=== PATIENT | male | born 1985 | race Caucasian/White ===

== ENCOUNTER 2018-03-25 13:22 | Observation (INO) ==
[2018-03-25] MEDS ORDERED: 0.9 % Sodium Chloride 1,000 ML IVC ONE (13:29)
[2018-03-25] MEDS ORDERED: Ondansetron 4 MG/2 ML VIAL IVP ONE (13:29)
[2018-03-25] MEDS ORDERED: *HR* FentaNYL (PF) 100 MCG/2 ML VIAL IVP ONE ×2 (13:49→20:50)
--- NOTE | 2018-03-25 13:52 | Emergency Department Note ---
Disposition Clinical Impression: Elevated bilirubin, Elevated transaminase level Hepatitis A Qualifiers: Hepatic coma status: without hepatic coma Qualified Code(s): B15.9 - Hepatitis A without hepatic coma Abdominal pain Qualifiers: Abdominal location: generalized Qualified Code(s): R10.84 - Generalized abdominal pain Nausea and vomiting Qualifiers: Vomiting type: unspecified Vomiting Intractability: non-intractable Qualified Code(s): R11.2 - Nausea with vomiting, unspecified Disposition: Admitted As Inpatient Condition: Undetermined Referrals: NONE,PCP [Primary Care Provider] - Forms: ED Satisfaction Letter, Work/School Release Time of Disposition: 15:48 Abdominal Pain HPI - General Chief Complaint: ED General Medical Stated Complaint: Flu like symptoms x 5 days Time Seen by Provider: 03/25/18 13:28 Source: patient Mode of arrival: ambulatory Limitations: no limitations Nursing Notes Reviewed: Yes Vital Signs Reviewed: Yes - History of Present Illness HPI Narrative: 32-year-old previously healthy male arrives to the emergency department with complaint of feeling ill over the past few days. Patient states he has become more weak with associated nausea and vomiting. Patient also states that his yellowing of the eyes as well as very dark colored urine. The patient states he has never had any episodes like this in the past. He denies any alcohol or recreational drug use including IVDU. The patient denies any fevers. He denies any chest pain, difficulty breathing. He appears uncomfortable in the room. He said he he is unable to keep any fluids down. The patient describes his abdominal pain is crampy and diffuse without any specific location. He denies any other complaints at this time. Pain Scale: 8 - Related Data Previous Rx's Medication Instructions Recorded Sulfamethoxazole/Trimeth DS 2 each PO BID #28 tablet 02/03/17 [Bactrim DS] Tramadol HCl [Ultram] 50 mg PO QID PRN #20 tab 02/03/17 Allergies Allergy/AdvReac Type Severity Reaction Status Date / Time No Known Allergies Allergy Verified 02/03/17 10:54 All systems ED: reviewed and negative except as stated. Constitutional: Reports: chills, weakness. Denies: fever ENT ED: Denies: congestion, dysphagia Cardiovascular: Denies: chest pain Respiratory: Denies: dyspnea Gastrointestinal: Reports: abdominal pain, nausea, vomiting. Denies: diarrhea, constipation, hematemesis, melena, hematochezia Genitourinary: Reports: dysuria. Denies: urgency, frequency, hematuria, discharge, testicular pain, testicular mass Musculoskeletal: Reports: back pain, myalgia. Denies: neck pain, arthralgia Integumentary: Denies: rash Neurological: Denies: headache, confusion Abdominal Pain PMH - Past Medical History Medical history: Reports: no medical history Male Surgical History: Reports: no surgical history - Social History Smoking status: Current every day smoker Alcohol use: Reports: rarely Drug use: Reports: none Physical Exam - General Limitations: no limitations General appearance: alert, in no apparent distress - Head Head exam: atraumatic, normocephalic, normal inspection - Eye Eye exam: Present: PERRL, EOMI, scleral icterus - ENT ENT exam: normal exam, normal oropharynx, mucous membranes moist - Neck Neck exam: Present: normal inspection, full ROM, trachea midline - Chest Chest inspection: Present: normal inspection, symmetric chest wall rise - Respiratory Respiratory exam: Present: normal lung sounds bilaterally - Cardiovascular Cardiovascular exam: Present: regular rate, normal rhythm, normal heart sounds - Abdominal Exam Abdominal exam: Present: soft, tenderness (Diffuse). Absent: distention, guarding, rebound, rigidity, Hendrickson's sign, Rovsing's sign, tenderness at McBurney's Point, pulsatile mass, hernia, scar - Extremities Exam Extremities exam: Present: normal inspection, full ROM. Absent: tenderness, pedal edema - Neurological Exam Neurological exam: Present: alert, oriented X3, CN II-XII intact, other (No asterixis) - Skin Skin exam: Present: warm, dry, intact, other (Jaundiced) Course - Reevaluation(s) Reevaluation #1: Patient noted to have a nitrite positive UTI. In addition, the patient was noted to have hepatitis A. Infectious control was notified. The patient was noted to have a bilirubin of 7.9, elevated transaminases. Time: 15:10 - Consultations Consultation #1: Spoke with Dr. Rocha in gastroenterology who recommended tylenol level and urine drug screen. Time: 15:45 Consultation #2: Spoke with Eloisa in infectious disease who stated they will see the patient in consultation. Time: 15:46 Consultation #3: We spoke with Dr. Owens in surgery who did not feel this was a surgical issue with the gallbladder wall thickening. She recommended speaking to GI which we did. No further recommendations at this time. Time: 15:58 Vital Signs Temperature 98.0 F 03/25/18 13:24 Pulse Rate 92 03/25/18 13:24 Respiratory Rate 16 03/25/18 13:24 Blood Pressure 131/92 03/25/18 13:24 O2 Sat by Pulse Oximetry 95 03/25/18 13:24 Temperature 98.0 F 03/25/18 13:53 Pulse Rate 69 03/25/18 15:33 Respiratory Rate 16 03/25/18 15:33 Blood Pressure 119/83 03/25/18 15:33 O2 Sat by Pulse Oximetry 97 03/25/18 15:33 Oxygen Delivery Oxygen Delivery Room Air Abdominal Pain - MDM Narrative Medical decision making narrative: Patient's workup in the emergency department demonstrates findings consistent with acute hepatitis A. Patient's acetaminophen level is within normal limits. The patient was also had a urinary tract infection. No biliary of structure was noted on ultrasound or CT scan. The patient does have elevated bilirubin at 7.9. Elevated transaminases are noted as well. The patient will be admitted to the hospital. He was given a gram or Rocephin and a liter of IV fluids here in the emergency department as well as 4 mg Zofran. Resting comfortably at this time. Ultrasound of the gallbladder did note some gallbladder wall thickening and surgery was consulted. The patient will be accepted to the hospitalist, Dr. Ellis. - Lab Data Lab results reviewed: Yes I reviewed the patient's lab results. Result diagrams: 03/25/18 13:39 03/25/18 13:39 Lab Results 03/25/18 03/25/18 03/25/18 Range/Units 13:39 13:39 13:39 WBC 4.3 (4.3-11.1) K/mcL RBC 5.50 (4.19-5.50) M/mcL Hgb 16.4 (12.9-16.9) g/dL Hct 45.1 (37.5-50.1) % MCV 82.0 L (83.0-100.0) fL MCH 29.8 (28.0-33.3) pg MCHC 36.4 H (31.6-35.5) g/dL RDW 12.8 (11.5-14.5) % Plt Count 161 (140-400) K/mcL MPV 9.4 (9.4-12.4) fL Seg Neutrophils % 46.0 % Band Neutrophils % 3.0 (0-4) % Lymphocytes % 38.0 % Monocytes % 10.0 % Eosinophils % 3.0 % Neutrophils # 2.1 (1.6-8.9) K/mcL Lymphocytes # 1.6 (0.6-4.6) K/mcL Monocytes # 0.4 (0.0-1.3) K/mcL Eosinophils # 0.1 (0.0-0.6) K/mcL Reactive Lymphocytes Present A (Not Present) Platelet Estimate Normal (Normal) Sodium 138 (136-145) mEq/L Potassium 3.8 (3.5-5.1) mEq/L Chloride 96 L (98-107) mEq/L Carbon Dioxide 28 (23-29) mEq/L BUN 17 (6-20) mg/dL Creatinine 0.86 (0.70-1.30) mg/dL Est GFR ( Amer) > 60 (> 60) Est GFR (Non-Af Amer) > 60 (> 60) BUN/Creatinine Ratio 20 (6-26) Glucose 104 (70-105) mg/dL Calculated Osmolality 288 (280-300) Calcium 9.7 (8.6-10.3) mg/dL Total Bilirubin 7.9 H (0.3-1.0) mg/dL Direct Bilirubin 5.4 H (0.0-0.2) mg/dL Indirect Bilirubin 2.5 H (0.0-1.2) mg/dL AST 2081 H (13-39) Units/L ALT > 500 H (7-52) Units/L Alkaline Phosphatase 227 H (34-104) Units/L Serum Total Protein 7.3 (6.4-8.9) g/dL Albumin 4.1 (3.5-5.7) g/dL Globulin 3.2 (2.4-3.5) g/dL Albumin/Globulin Ratio 1.3 (1.1-2.2) Lipase 27 (11-82) Units/L Urine Color (Yellow) Urine Clarity (Clear) Urine pH (5.0-8.0) pH Units Ur Specific [place] (1.010-1.025) Urine Protein (Neg-Trace) mg/dL Urine Glucose (UA) (Normal) mg/dL Urine Ketones (Negative) mg/dL Urine Blood (Negative) Urine Nitrite (Negative) Urine Bilirubin (Negative) Urine Urobilinogen (Normal) mg/dL Ur Leukocyte Esterase (Negative) Urine Microscopic RBC (0-3) per hpf Urine Microscopic WBC (0-3) per hpf Ur Squamous Epith Cells (None-Few) per lpf Amorphous Sediment (Few) Urine Bacteria (None-Few) per hpf Hyaline Casts (None-Few) per lpf Urine Mucus (Few) Ur Culture Indicated? (NO) Acetaminophen < 10 L (10-20) mcg/mL Hepatitis A IgM Ab Reactive H (Nonreactive) Hep Bs Antigen Nonreactive (Nonreactive) Hep B Core IgM Ab Nonreactive (Nonreactive) Hepatitis C Ab Screen Nonreactive (Nonreactive) 03/25/18 Range/Units 13:50 WBC (4.3-11.1) K/mcL RBC (4.19-5.50) M/mcL Hgb (12.9-16.9) g/dL Hct (37.5-50.1) % MCV (83.0-100.0) fL MCH (28.0-33.3) pg MCHC (31.6-35.5) g/dL RDW (11.5-14.5) % Plt Count (140-400) K/mcL MPV (9.4-12.4) fL Seg Neutrophils % % Band Neutrophils % (0-4) % Lymphocytes % % Monocytes % % Eosinophils % % Neutrophils # (1.6-8.9) K/mcL Lymphocytes # (0.6-4.6) K/mcL Monocytes # (0.0-1.3) K/mcL Eosinophils # (0.0-0.6) K/mcL Reactive Lymphocytes (Not Present) Platelet Estimate (Normal) Sodium (136-145) mEq/L Potassium (3.5-5.1) mEq/L Chloride (98-107) mEq/L Carbon Dioxide (23-29) mEq/L BUN (6-20) mg/dL Creatinine (0.70-1.30) mg/dL Est GFR ( Amer) (> 60) Est GFR (Non-Af Amer) (> 60) BUN/Creatinine Ratio (6-26) Glucose (70-105) mg/dL Calculated Osmolality (280-300) Calcium (8.6-10.3) mg/dL Total Bilirubin (0.3-1.0) mg/dL Direct Bilirubin (0.0-0.2) mg/dL Indirect Bilirubin (0.0-1.2) mg/dL AST (13-39) Units/L ALT (7-52) Units/L Alkaline Phosphatase (34-104) Units/L Serum Total Protein (6.4-8.9) g/dL Albumin (3.5-5.7) g/dL Globulin (2.4-3.5) g/dL Albumin/Globulin Ratio (1.1-2.2) Lipase (11-82) Units/L Urine Color [place] A (Yellow) Urine Clarity Clear (Clear) Urine pH 6.0 (5.0-8.0) pH Units Ur Specific [place] > 1.030 H (1.010-1.025) Urine Protein 100 H (Neg-Trace) mg/dL Urine Glucose (UA) Normal (Normal) mg/dL Urine Ketones 80 H (Negative) mg/dL Urine Blood Negative (Negative) Urine Nitrite Positive A (Negative) Urine Bilirubin Large H (Negative) Urine Urobilinogen Normal (Normal) mg/dL Ur Leukocyte Esterase Small H (Negative) Urine Microscopic RBC 5-15 H (0-3) per hpf Urine Microscopic WBC 3-5 H (0-3) per hpf Ur Squamous Epith Cells Few (None-Few) per lpf Amorphous Sediment Few (Few) Urine Bacteria None Seen (None-Few) per hpf Hyaline Casts None Seen (None-Few) per lpf Urine Mucus Few (Few) Ur Culture Indicated? YES A (NO) Acetaminophen (10-20) mcg/mL Hepatitis A IgM Ab (Nonreactive) Hep Bs Antigen (Nonreactive) Hep B Core IgM Ab (Nonreactive) Hepatitis C Ab Screen (Nonreactive) - Radiology Data Radiology results reviewed: Yes I reviewed the patient's radiology results. Abdomen/Pelvis CT 03/25/18 13:48 IMPRESSION: 1. Splenomegaly. 2. No focal liver lesion but there is limited evaluation of the solid organs for soft tissue masses in the absence of IV contrast. 3. No acute infective or inflammatory process. D/ / Kaushik Dejesus MD / Kaushik Dejesus MD Interpreting Provider: Kaushik Dejesus MD Gallbladder Ultrasound 03/25/18 13:48 IMPRESSION: Borderline gallbladder wall thickening, otherwise right upper quadrant ultrasound. D/ / Mayito Pereira MD / Mayito Pereira MD Interpreting Provider: Mayito Pereira MD
[2018-03-25 13:53] LABS: Eosinophils # 0.1 K/mcL (0.0-0.6); Hematocrit 45.1 % (37.5-50.1); Hemoglobin 16.4 g/dL (12.9-16.9); Mean Corpuscular HGB Conc 36.4 g/dL (31.6-35.5); Mean Corpuscular Hemoglobin 29.8 pg (28.0-33.3); Mean Platelet Volume 9.4 fL (9.4-12.4); Platelet Count 161 K/mcL (140-400); Red Cell Distribution Width 12.8 % (11.5-14.5)
[2018-03-25 14:00] LABS: Lymphocytes # 1.6 K/mcL (0.6-4.6)
[2018-03-25 14:13] LABS: Bilirubin,Urine Large (Negative); Blood,Urine Negative (Negative); Clarity,Urine Clear (Clear); Color,Urine Orange (Yellow); Glucose,Urine (UA) Normal (Normal); Ketones,Urine 80 mg/dL (Negative); Leukocyte Esterase,Urine Small (Negative); Nitrite,Urine Positive (Negative); Protein,Urine 100 mg/dL (Neg-Trace); Specific Gravity,Urine > 1.030 (1.010-1.025); Urobilinogen,Urine Normal (Normal)
[2018-03-25 14:17] LABS: Bacteria,Urine None Seen per hpf (None-Few); Hyaline Casts,Urine None Seen per lpf (None-Few); Squamous Epithelial Cell,Urine Few per lpf (None-Few)
[2018-03-25 14:39] LABS: Hepatitis B Core IgM Nonreactive (Nonreactive); Hepatitis B Surface Antigen Nonreactive (Nonreactive); Hepatitis C Virus Antibody Nonreactive (Nonreactive)
[2018-03-25 14:44] LABS: Mucus,Urine Few (Few)
[2018-03-25 14:45] LABS: Amorphous Sediment,Urine Few (Few)
[2018-03-25 14:53] LABS: Hepatitis A Antibody IgM Reactive (Nonreactive)
[2018-03-25] MEDS ORDERED: cefTRIAXone 1,000 MG in Water for inj. (sterile) 20 ML 10 ML IVP ONE (14:55)
[2018-03-25 15:01] LABS: Alanine Aminotransferase > 500 Units/L (7-52); Albumin 4.1 g/dL (3.5-5.7); Albumin/Globulin Ratio 1.3 (1.1-2.2); Alkaline Phosphatase 227 Units/L (34-104); Aspartate Amino Transferase 2081 Units/L (13-39); BUN/Creatinine Ratio 20 (6-26); Bilirubin,Direct 5.4 mg/dL (0.0-0.2); Bilirubin,Indirect 2.5 mg/dL (0.0-1.2); Bilirubin,Total 7.9 mg/dL (0.3-1.0); Blood Urea Nitrogen 17 mg/dL (6-20); Calcium 9.7 mg/dL (8.6-10.3); Carbon Dioxide 28 mEq/L (23-29); Chloride 96 mEq/L (98-107); Globulin 3.2 g/dL (2.4-3.5); Glucose 104 mg/dL (70-105); Lipase 27 Units/L (11-82); Osmolality,Calculated 288 (280-300); Potassium 3.8 mEq/L (3.5-5.1); Sodium 138 mEq/L (136-145); Total Protein 7.3 g/dL (6.4-8.9); eGFR For Non-African Americans > 60 (> 60)
[2018-03-25 15:15] LABS: Monocytes # 0.4 K/mcL (0.0-1.3); Neutrophils # 2.1 K/mcL (1.6-8.9); Platelet Estimate Normal (Normal); Reactive Lymphocytes Present (Not Present)
[2018-03-25 15:35] LABS: Acetaminophen < 10 mcg/mL (10-20)
--- NOTE | 2018-03-25 16:10 | Emergency Department Note ---
Disposition Clinical Impression: Elevated bilirubin, Elevated transaminase level Hepatitis A Qualifiers: Hepatic coma status: without hepatic coma Qualified Code(s): B15.9 - Hepatitis A without hepatic coma Abdominal pain Qualifiers: Abdominal location: generalized Qualified Code(s): R10.84 - Generalized abdominal pain Nausea and vomiting Qualifiers: Vomiting type: unspecified Vomiting Intractability: non-intractable Qualified Code(s): R11.2 - Nausea with vomiting, unspecified Disposition: Admitted As Inpatient Condition: Undetermined Referrals: NONE,PCP [Primary Care Provider] - Forms: ED Satisfaction Letter, Work/School Release General Adult HPI - General Chief complaint: ED Nausea/Vomiting/Diarrhea Stated complaint: Flu like symptoms x 5 days Time Seen by Provider: 03/25/18 13:28 Source: patient Mode of arrival: ambulatory Limitations: no limitations - History of Present Illness Pain Scale: 8 - Related Data Previous Rx's Medication Instructions Recorded Sulfamethoxazole/Trimeth DS 2 each PO BID #28 tablet 02/03/17 [Bactrim DS] Tramadol HCl [Ultram] 50 mg PO QID PRN #20 tab 02/03/17 Allergies Allergy/AdvReac Type Severity Reaction Status Date / Time No Known Allergies Allergy Verified 02/03/17 10:54 Constitutional: Reports: chills, weakness. Denies: fever ENT ED: Denies: congestion, dysphagia Cardiovascular: Denies: chest pain Respiratory: Denies: dyspnea Gastrointestinal: Reports: abdominal pain, nausea, vomiting. Denies: diarrhea, constipation, hematemesis, melena, hematochezia Genitourinary: Reports: dysuria. Denies: urgency, frequency, hematuria, discharge, testicular pain, testicular mass Musculoskeletal: Reports: back pain, myalgia. Denies: neck pain, arthralgia Integumentary: Denies: rash Neurological: Denies: headache, confusion Past Medical History - Past Medical History Medical history: Reports: no medical history Psychiatric history: Reports: no psych history - Social History Smoking Status: Current every day smoker Smokeless Tobacco Status: No Alcohol use: Reports: rarely Drug use: Reports: none Physical Exam - General Limitations: no limitations General appearance: alert, in no apparent distress Course Vital Signs Temperature 98.0 F 03/25/18 13:24 Pulse Rate 92 03/25/18 13:24 Respiratory Rate 16 03/25/18 13:24 Blood Pressure 131/92 03/25/18 13:24 O2 Sat by Pulse Oximetry 95 03/25/18 13:24 Temperature 98.0 F 03/25/18 13:53 Pulse Rate 69 03/25/18 15:33 Respiratory Rate 16 03/25/18 15:33 Blood Pressure 119/83 03/25/18 15:33 O2 Sat by Pulse Oximetry 97 03/25/18 15:33 Oxygen Delivery Oxygen Delivery Room Air Medical Decision Making - Lab Data Result diagrams: 03/25/18 13:39 03/25/18 13:39 Lab Results 03/25/18 03/25/18 03/25/18 Range/Units 13:39 13:39 13:39 WBC 4.3 (4.3-11.1) K/mcL RBC 5.50 (4.19-5.50) M/mcL Hgb 16.4 (12.9-16.9) g/dL Hct 45.1 (37.5-50.1) % MCV 82.0 L (83.0-100.0) fL MCH 29.8 (28.0-33.3) pg MCHC 36.4 H (31.6-35.5) g/dL RDW 12.8 (11.5-14.5) % Plt Count 161 (140-400) K/mcL MPV 9.4 (9.4-12.4) fL Seg Neutrophils % 46.0 % Band Neutrophils % 3.0 (0-4) % Lymphocytes % 38.0 % Monocytes % 10.0 % Eosinophils % 3.0 % Neutrophils # 2.1 (1.6-8.9) K/mcL Lymphocytes # 1.6 (0.6-4.6) K/mcL Monocytes # 0.4 (0.0-1.3) K/mcL Eosinophils # 0.1 (0.0-0.6) K/mcL Reactive Lymphocytes Present A (Not Present) Platelet Estimate Normal (Normal) Sodium 138 (136-145) mEq/L Potassium 3.8 (3.5-5.1) mEq/L Chloride 96 L (98-107) mEq/L Carbon Dioxide 28 (23-29) mEq/L BUN 17 (6-20) mg/dL Creatinine 0.86 (0.70-1.30) mg/dL Est GFR ( Amer) > 60 (> 60) Est GFR (Non-Af Amer) > 60 (> 60) BUN/Creatinine Ratio 20 (6-26) Glucose 104 (70-105) mg/dL Calculated Osmolality 288 (280-300) Calcium 9.7 (8.6-10.3) mg/dL Total Bilirubin 7.9 H (0.3-1.0) mg/dL Direct Bilirubin 5.4 H (0.0-0.2) mg/dL Indirect Bilirubin 2.5 H (0.0-1.2) mg/dL AST 2081 H (13-39) Units/L ALT > 500 H (7-52) Units/L Alkaline Phosphatase 227 H (34-104) Units/L Serum Total Protein 7.3 (6.4-8.9) g/dL Albumin 4.1 (3.5-5.7) g/dL Globulin 3.2 (2.4-3.5) g/dL Albumin/Globulin Ratio 1.3 (1.1-2.2) Lipase 27 (11-82) Units/L Urine Color (Yellow) Urine Clarity (Clear) Urine pH (5.0-8.0) pH Units Ur Specific [place] (1.010-1.025) Urine Protein (Neg-Trace) mg/dL Urine Glucose (UA) (Normal) mg/dL Urine Ketones (Negative) mg/dL Urine Blood (Negative) Urine Nitrite (Negative) Urine Bilirubin (Negative) Urine Urobilinogen (Normal) mg/dL Ur Leukocyte Esterase (Negative) Urine Microscopic RBC (0-3) per hpf Urine Microscopic WBC (0-3) per hpf Ur Squamous Epith Cells (None-Few) per lpf Amorphous Sediment (Few) Urine Bacteria (None-Few) per hpf Hyaline Casts (None-Few) per lpf Urine Mucus (Few) Ur Culture Indicated? (NO) Acetaminophen < 10 L (10-20) mcg/mL Hepatitis A IgM Ab Reactive H (Nonreactive) Hep Bs Antigen Nonreactive (Nonreactive) Hep B Core IgM Ab Nonreactive (Nonreactive) Hepatitis C Ab Screen Nonreactive (Nonreactive) 03/25/18 Range/Units 13:50 WBC (4.3-11.1) K/mcL RBC (4.19-5.50) M/mcL Hgb (12.9-16.9) g/dL Hct (37.5-50.1) % MCV (83.0-100.0) fL MCH (28.0-33.3) pg MCHC (31.6-35.5) g/dL RDW (11.5-14.5) % Plt Count (140-400) K/mcL MPV (9.4-12.4) fL Seg Neutrophils % % Band Neutrophils % (0-4) % Lymphocytes % % Monocytes % % Eosinophils % % Neutrophils # (1.6-8.9) K/mcL Lymphocytes # (0.6-4.6) K/mcL Monocytes # (0.0-1.3) K/mcL Eosinophils # (0.0-0.6) K/mcL Reactive Lymphocytes (Not Present) Platelet Estimate (Normal) Sodium (136-145) mEq/L Potassium (3.5-5.1) mEq/L Chloride (98-107) mEq/L Carbon Dioxide (23-29) mEq/L BUN (6-20) mg/dL Creatinine (0.70-1.30) mg/dL Est GFR ( Amer) (> 60) Est GFR (Non-Af Amer) (> 60) BUN/Creatinine Ratio (6-26) Glucose (70-105) mg/dL Calculated Osmolality (280-300) Calcium (8.6-10.3) mg/dL Total Bilirubin (0.3-1.0) mg/dL Direct Bilirubin (0.0-0.2) mg/dL Indirect Bilirubin (0.0-1.2) mg/dL AST (13-39) Units/L ALT (7-52) Units/L Alkaline Phosphatase (34-104) Units/L Serum Total Protein (6.4-8.9) g/dL Albumin (3.5-5.7) g/dL Globulin (2.4-3.5) g/dL Albumin/Globulin Ratio (1.1-2.2) Lipase (11-82) Units/L Urine Color [place] A (Yellow) Urine Clarity Clear (Clear) Urine pH 6.0 (5.0-8.0) pH Units Ur Specific [place] > 1.030 H (1.010-1.025) Urine Protein 100 H (Neg-Trace) mg/dL Urine Glucose (UA) Normal (Normal) mg/dL Urine Ketones 80 H (Negative) mg/dL Urine Blood Negative (Negative) Urine Nitrite Positive A (Negative) Urine Bilirubin Large H (Negative) Urine Urobilinogen Normal (Normal) mg/dL Ur Leukocyte Esterase Small H (Negative) Urine Microscopic RBC 5-15 H (0-3) per hpf Urine Microscopic WBC 3-5 H (0-3) per hpf Ur Squamous Epith Cells Few (None-Few) per lpf Amorphous Sediment Few (Few) Urine Bacteria None Seen (None-Few) per hpf Hyaline Casts None Seen (None-Few) per lpf Urine Mucus Few (Few) Ur Culture Indicated? YES A (NO) Acetaminophen (10-20) mcg/mL Hepatitis A IgM Ab (Nonreactive) Hep Bs Antigen (Nonreactive) Hep B Core IgM Ab (Nonreactive) Hepatitis C Ab Screen (Nonreactive) Attestation Statement - Attestation Attestation: I examined this patient and my medical decision-making was reviewed with the Resident Physician. I agree with the documented findings, disposition and treatment plan as described except to the extent set forth below. 32 year old male presnet to the ED flu like symptoms and yellowing to his eyes and states that he has generilzed malaise and generalzied abodminal pain. We did abdominal lab work up with hepatits panel and is positive for Hep A and UTI. We have consulted with GI and they will see patinetin consult with hao. health deparmtent and the infectious control at the hospital have been updated on the hep A finding. We davy admit to medicine
--- NOTE | 2018-03-25 16:29 | Event Note ---
Date of Encounter: 03/25/18 Time of Encounter: 16:26 Patient was seen and examined. I agree with the H&P as written by the resident physician. Patient presents with GI symptoms for a few days with associated weakness. He reports nausea. In the ED was noted to have significantly elevated liver function test. CT abdomen and pelvis was suspicious for gallbladder disease and an ultrasound of right upper quadrant was done showing borderline gallbladder wall thickening. Surgery were contacted in the ED and there was no surgical intervention recommended. Tested positive for hepatitis A. No history of IV drug abuse but snorts heroin. Patient is homeless GEN: NAD, jaundiced CVS: RRR. S1, S2, no m/r/g RESP: CTAB ABD: soft, NT, ND, +BS EXT: Multiple tattoos, no edema. 2+ DP NEURO: Nonfocal Admit to hospitalist Conservative management with IV fluid, antiemetics, diet as tolerated GI and ID consult in the ED Check PT/INR Labs in the morning IV antibiotics for UTI Follow up on cultures DVT prophylaxis
[2018-03-25] MEDS ORDERED: Naloxone 0.4 MG/ML INJ IVP PRN (16:52)
--- NOTE | 2018-03-25 17:21 | Internal Med History&Physical ---
Date of Encounter: 03/25/18 Time of Encounter: 17:05 Internal Medicine - H&P: HPI Chief complaint: nausea and vomiting Admitted From: Home Plans for Post Hospital Care: Home History of present illness: Mr. Cervantes is a 32 year old male with no significant past medical history who presented to the emergency department because of 5 days of flu like symptoms including nausea, vomiting, malaise, and anorexia. He states he visited a friend who was inpatient at [facility] on Friday, and then went back to a hotel where he started feeling subjectively febrile. On the next day he developed consistent nausea and vomiting with headache and anorexia, all which consistently worsened up to admission. During that time he also developed a reddish orange color to his urine and yellowing of the eyes. He has never had any of these symptoms before, and does not work in [employer], or have sick contacts.The patient states he does not have a permanent living situation, he has one sexual partner his girlfriend, he does not use IV drugs currently but has in the past, spent time in correction where he received tattoos, smokes tobacco but does not drink alcohol. He denies recent travel, has not seen a doctor since correction, and is unaware of his vaccine history. In the ED gallbladder US showed wall thickening but otherwise normal. Abdominal/ pelvic CT showed splenomegaly but otherwise no acute process. Bilirubin and liver enzymes are significantly elevated. UA positive for RBCs, WBCs, protein, and nitrites. Hepatitis serology positive for Hepatitis A IgM antibody. Past Med Surg Social Fam HX - Past Medical History Source: patient Medical history: no medical history Psychiatric history: no psych history - Past Surgical History Surgical History: no surgical history - Social History Smoking Status: Current every day smoker Smokeless Tobacco Status: No Alcohol use: rarely Drug use: none, opiates Current living situation: Homeless Activity Level: Independent ambulation Recent Out of Country Travel Within the Last 8 Weeks: No Exposure or Possible Exposure to Illness During Travel: No Internal Medicine - H&P: Meds No Known Home Drugs 03/25/18 [History] 3 Allergy/AdvReac Type Severity Reaction Status Date / Time No Known Allergies Allergy Verified 02/03/17 10:54 All Systems PM: A 10-system review of systems was performed and is negative for pertinent findings except as documented above in the HPI. - Constitutional Constitutional: anorexia, fever(s), malaise, weight loss - EENT Eyes: no change in vision, no discharge, no pain, no photophobia Additional comments: positive for scleral icterus Ears: no ear discharge, no ear pain, no tinnitus Nose, mouth and throat: no dysphagia, no nasal discharge, no neck pain, no sore throat - Cardiovascular Cardiovascular ROS IM: no chest pain, no diaphoresis, no dyspnea, no lightheadedness, no palpitations, no syncope - Respiratory Respiratory: no cough, no dyspnea, no wheezing, no excessive phlegm production - Gastrointestinal Gastrointestinal: as per HPI, abdominal pain, nausea - Constitutional Vitals: Temp Pulse Resp BP Pulse Ox 98.0 F 69 16 119/83 97 03/25/18 13:53 03/25/18 15:33 03/25/18 15:33 03/25/18 15:33 03/25/18 15:33 General appearance: Present: mild distress, A&O X 3, answers questions appropriately - Head Head exam: Present: atraumatic - Eye Eye exam: Present: scleral icterus Pupils: Present: PERRL - ENT ENT exam: Present: normal exam - Neck Neck exam general surgery: Present: full ROM, normal inspection - Respiratory Respiratory exam: Present: CTAB. Absent: accessory muscle use, rales, rhonchi, wheezes - Cardiovascular Cardiovascular exam: Present: RRR, +S1, +S2. Absent: diastolic murmur, gallop, rubs, systolic murmur - GI/Abdominal GI/Abdominal exam: Present: normal bowel sounds, soft, tenderness, no peritoneal signs. Absent: distended Additional comments: Left sided flank tenderness - Skin Additional comments: jaundice Internal Med - H&P Results - Labs CBC & Chem 7: 03/25/18 13:39 03/25/18 13:39 Labs: Short CBC 03/25/18 Range/Units 13:39 WBC 4.3 (4.3-11.1) K/mcL Hgb 16.4 (12.9-16.9) g/dL Hct 45.1 (37.5-50.1) % Plt Count 161 (140-400) K/mcL Neutrophils # 2.1 (1.6-8.9) K/mcL BMP 03/25/18 13:39 Sodium 138 Potassium 3.8 Chloride 96 L Carbon Dioxide 28 BUN 17 Creatinine 0.86 Glucose 104 Calcium 9.7 Liver Function 03/25/18 Range/Units 13:39 Total Bilirubin 7.9 H (0.3-1.0) mg/dL Direct Bilirubin 5.4 H (0.0-0.2) mg/dL AST 2081 H (13-39) Units/L ALT > 500 H (7-52) Units/L Alkaline Phosphatase 227 H (34-104) Units/L Albumin 4.1 (3.5-5.7) g/dL Urine 03/25/18 Range/Units 13:50 Urine Color Martin A (Yellow) Urine Clarity Clear (Clear) Urine pH 6.0 (5.0-8.0) pH Units Ur Specific [place] > 1.030 H (1.010-1.025) Urine Protein 100 H (Neg-Trace) mg/dL Urine Glucose (UA) Normal (Normal) mg/dL - Impressions ITS Impressions Abdomen/Pelvis CT 03/25/18 13:48 IMPRESSION: 1. Splenomegaly. 2. No focal liver lesion but there is limited evaluation of the solid organs for soft tissue masses in the absence of IV contrast. 3. No acute infective or inflammatory process. D/ / Kaushik Dejesus MD / Kaushik Dejesus MD Interpreting Provider: Kaushik Dejesus MD Gallbladder Ultrasound 03/25/18 13:48 IMPRESSION: Borderline gallbladder wall thickening, otherwise right upper quadrant ultrasound. D/ / Mayito Pereira MD / Mayito Pereira MD Interpreting Provider: Mayito Pereira MD - Assessment and plan (1) Hepatitis A Current Visit: Yes Status: Acute Assessment and plan: 03/25- Patient admitted for acute hepatitis A infection. Plan will be supportive care. -IVF Normal Saline 125ml/hr and Ondansetron 4mgIVP Q6HR for nausea/vomiting resuscitation -INR to evaluate liver function -HIV antibody screen due to high risk activity -Trend CBC/CMP -Follow Urine Drug Screen Qualifiers: Hepatic coma status: without hepatic coma Qualified Code(s): B15.9 - Hepatitis A without hepatic coma (2) Urinary tract infection Current Visit: Yes Status: Acute Assessment and plan: 03/25- Due to male gender and flank pain this is considered a complicated UTI -1gIV Ceftriaxone daily -IVF Normal Saline 125ml/hr and follow urine cultures for growth/ sensitivities -Follow clinical disposition for worsening symptoms Qualifiers: Urinary tract infection type: site unspecified Hematuria presence: with hematuria Qualified Code(s): N39.0 - Urinary tract infection, site not specified; R31.9 - Hematuria, unspecified (3) Nausea and vomiting Current Visit: Yes Status: Acute Assessment and plan: 03/25- Nausea and vomiting due to Hep A infection, supportive care -IVF Normal Saline 125ml/hr and Ondansetron 4mgIV Q6HR -Normal diet ordered Qualifiers: Vomiting type: unspecified Vomiting Intractability: non-intractable Qualified Code(s): R11.2 - Nausea with vomiting, unspecified (4) DVT prophylaxis Current Visit: Yes Status: Acute Assessment and plan: Ambulation TID - Time Spent With Patient Total time spent is greater than 50% in coordination of care (as documented) at patient's floor/unit and/or counseling patient:
[2018-03-25 17:25] LABS: INR 1.3; Prothrombin Time 14.4 Seconds (9.4-12.1)
[2018-03-25] MEDS: 0.9 % Sodium Chloride 1,000 ML IVC SCH (17:35)
[2018-03-25] MEDS: Ondansetron 4 MG/2 ML VIAL IVP SCH ×2 (17:41→23:22)
[2018-03-25] MEDS ORDERED: Ketorolac 30 MG/ML VIAL IVP ONE (20:47)
[2018-03-26] MEDS: 0.9 % Sodium Chloride 1,000 ML IVC SCH (02:13)
[2018-03-26] MEDS ORDERED: *HR* Promethazine 25 MG/ML VIAL IVP PRN (02:21)
[2018-03-26] MEDS: Ondansetron 4 MG/2 ML VIAL IVP SCH ×2 (05:37→11:28)
[2018-03-26 05:54] LABS: Basophils % 0.6 %; Eosinophils # 0.1 K/mcL (0.0-0.6); Eosinophils % 3.7 %; Immature Granulocytes % 0.3 % (0-4); Lymphocytes # 1.5 K/mcL (0.6-4.6); Lymphocytes % 46.4 %; Mean Corpuscular HGB Conc 35.9 g/dL (31.6-35.5); Mean Corpuscular Hemoglobin 29.9 pg (28.0-33.3); Mean Corpuscular Volume 83.3 fL (83.0-100.0); Mean Platelet Volume 9.5 fL (9.4-12.4); Monocytes # 0.5 K/mcL (0.0-1.3); Monocytes % 16.2 %; Neutrophils # 1.1 K/mcL (1.6-8.9); Platelet Count 127 K/mcL (140-400); Red Blood Count 4.92 M/mcL (4.19-5.50); Red Cell Distribution Width 12.8 % (11.5-14.5); Segmented Neutrophils % 32.8 %
[2018-03-26 05:58] LABS: Hemoglobin 14.7 g/dL (12.9-16.9)
[2018-03-26 06:23] LABS: Large Platelets Present (Not Present); Platelet Estimate Slight Decrease (Normal)
[2018-03-26 06:28] LABS: Alanine Aminotransferase > 500 Units/L (7-52); Albumin 3.4 g/dL (3.5-5.7); Albumin/Globulin Ratio 1.4 (1.1-2.2); Alkaline Phosphatase 182 Units/L (34-104); Aspartate Amino Transferase 1177 Units/L (13-39); BUN/Creatinine Ratio 15 (6-26); Bilirubin,Total 6.2 mg/dL (0.3-1.0); Blood Urea Nitrogen 13 mg/dL (6-20); Calcium 8.8 mg/dL (8.6-10.3); Carbon Dioxide 30 mEq/L (23-29); Chloride 107 mEq/L (98-107); Globulin 2.5 g/dL (2.4-3.5); Glucose 109 mg/dL (70-105); Osmolality,Calculated 283 (280-300); Potassium 3.6 mEq/L (3.5-5.1); Sodium 136 mEq/L (136-145); Total Protein 5.9 g/dL (6.4-8.9); eGFR For Non-African Americans > 60 (> 60)
--- NOTE | 2018-03-26 08:04 | Event Note ---
Date of Encounter: 03/26/18 Time of Encounter: 08:03 Patient was seen and examined. I agree with the progress note as written by the resident physician. Admitted with acute hepatitis A. Feeling better. Tolerating diet. Patient presents with GI symptoms for a few days with associated weakness. In the ED was noted to have significantly elevated liver function test. CT abdomen and pelvis was suspicious for gallbladder disease and an ultrasound of right upper quadrant was done showing borderline gallbladder wall thickening. Surgery were contacted in the ED and there was no surgical intervention recommended. Tested positive for hepatitis A. No history of IV drug abuse but snorts heroin. Patient is homeless GEN: NAD, jaundiced CVS: RRR. S1, S2, no m/r/g RESP: CTAB ABD: soft, NT, ND, +BS EXT: Multiple tattoos, no edema. 2+ DP NEURO: Nonfocal c/w conservative management with IV fluid, antiemetics, diet as tolerated GI and ID consult in the ED Trend LFTs. IV antibiotics for UTI Follow up on cultures DVT prophylaxis
[2018-03-26 08:42] LABS: Amphetamine Screen,Urine Negative ng/mL (Cutoff=1000); Barbiturate Screen,Urine Negative ng/mL (Cutoff=200); Benzodiazepines Screen,Urine Negative ng/mL (Cutoff=200); Cannabinoid Screen,Urine Negative ng/mL (Cutoff = 50); Cocaine Screen,Urine Negative ng/mL (Cutoff= 300); Opiate Screen,Urine Positive ng/mL (Cutoff=300); Phencyclidine Screen,Urine Negative ng/mL (Cutoff=25)
[2018-03-26] MEDS ORDERED: cefTRIAXone 1,000 MG in Water for inj. (sterile) 20 ML 10 ML IVP SCH (09:00)
--- NOTE | 2018-03-26 11:41 | Infectious Disease Consult ---
Date of Encounter: 03/26/18 Time of Encounter: 11:37 Assessment and Plan (1) Hepatitis A Status: Acute Assessment and plan: Hepatitis A IgM antibody positive. Patient symptomatic with nausea and vomiting. LFTs trending down this morning. Continue to trend. Supportive care per the primary team. GI consulted. Await recommendations. Qualifiers: Hepatic coma status: without hepatic coma Qualified Code(s): B15.9 - Hepatitis A without hepatic coma (2) Elevated bilirubin Status: Acute Assessment and plan: Secondary to acute hepatitis A. Bilirubin 7.9 on admission. Down to 6.2 this morning. Continue to trend. (3) Elevated transaminase level Status: Acute Assessment and plan: Secondary to acute hepatitis A. Trending down. Continue to trend. Continue supportive care. (4) Abdominal pain Status: Acute Assessment and plan: Likely secondary to vomiting and acute hepatitis A. Resolved. CT abdomen and pelvis negative for acute infectious etiology. Pain management per the primary team. Qualifiers: Abdominal location: generalized Qualified Code(s): R10.84 - Generalized abdominal pain (5) Nausea and vomiting Status: Acute Assessment and plan: Secondary to acute hepatitis A infection. Supportive care per the primary team. Qualifiers: Vomiting type: unspecified Vomiting Intractability: non-intractable Qualified Code(s): R11.2 - Nausea with vomiting, unspecified (6) Asymptomatic bacteriuria Status: Acute Assessment and plan: Urinalysis positive for WBC and few bacteria, but the patient is asymptomatic. No indication to treat. Discontinue Rocephin. (7) History of intravenous drug use in remission Status: Acute Assessment and plan: Reports last IVDU 3 years ago. HIV nonreactive. Hep B and Hep C testing negative. Infectious Disease HPI - Data of Consult Patient: new to practice Consult date: 03/26/18 Requesting Physician: Yeison Ellis MD Primary Care Provider: PCP NONE - Consult Narrative Reason for consult: Hepatitis A History of present illness: Mr. Cervantes is a 32 year old male with a past medical history of IV drug use with last reported use about 3 years ago. The patient was admitted to the hospital March 25 for acute hepatitis A. We are consult March 26 for further recommendations for acute hepatitis A. Briefly, the patient's a 32-year-old male with past pedicle history as stated above. The patient reported a history of weakness, nausea, and vomiting for a couple days prior to presentation. Upon arrival, the patient was afebrile, but was mildly tachycardic. His white blood cell count was normal. LFTs reveal a total bilirubin of 7.9, AST of 2081, ALC of greater than 500, an alkaline phosphatase of 227. He had a CT the abdomen and pelvis that showed splenomegaly , no focal liver lesion but there was limited evaluation of the solid organs or soft tissue masses in the absence of IV contrast, in no acute infective or inflammatory process was identified. The patient did have a gallbladder ultrasound that showed some wall thickening, but the general surgery team does not recommend any intervention at this time. The patient's urinalysis was positive for white blood cells, but few bacteria. The culture is pending. He was admitted to the hospital for further evaluation. Since admission, the patient has remained afebrile hemodynamically stable. His white blood count is down to 3.2 today. Platelets are down to 127. Total bilirubin is down to 6.2. AST is 1177, ALC remains high at greater than 500, alkaline phosphatase is down to 182. His HIV status was checked and was nonreactive. Hep B and C were negative. He was started. The IV Rocephin for possible urinary tract infection. GI service has been consulted and we are awaiting their recommendations. We have been asked to evaluate and make further recommendations. During my exam today, the patient endorsed a history as stated above. He reported a fever, but denied chills or rigors. He denied any headache or neck pain. Denies any congestion, earache, or sore throat. Denied chest pain, shortness of breath, or cough. Reported some generalized abdominal pain that he related to profusely vomiting. He reported nausea and vomiting and difficulty keeping anything down until he was admitted. He does tell me he was able to eat some breakfast this morning. He denied any urinary frequency, dysuria, or hematuria. He did tell me that his urine was very dark in color. He did report some mild low back pain that was worse with movement or ambulation. He denied any pain in his joints or extremities, but felt diffusely weak. He denies any oral thrush or skin lesions. The patient states he lives at home with his girlfriend. He smokes about a pack cigarettes per day. He denies any alcohol use. He reports IV drug use with last use about 3 years ago before he went to [facility]. He has multiple tattoos that he got while he was in [facility]. He denies any known infectious history. He is not currently employed. He denies any known sick contacts. CC: Yeison Ellis MD Past Med Surg Social Fam HX - Past Medical History Attestation: Yes The following information was validated with the patient. Source: patient, old records reviewed, nursing notes reviewed Medical history: no medical history Psychiatric history: no psych history - Past Surgical History Surgical History: no surgical history - Social History Smoking Status: Current every day smoker Packs per day: 1 Smokeless Tobacco Status: No Alcohol use: rarely Drug use: none, IV Drug Use (IV drug use 3 years ago) Occupational status: unemployed Current living situation: Home, With Family Activity Level: Independent ambulation Recent Out of Country Travel Within the Last 8 Weeks: No Exposure or Possible Exposure to Illness During Travel: No - Family History Mother History Unknown: Yes Infectious Disease-CN:Meds No Known Home Drugs 03/25/18 [History] 3 Allergy/AdvReac Type Severity Reaction Status Date / Time No Known Allergies Allergy Verified 02/03/17 10:54 All systems: reviewed and no additional remarkable complaints except as stated Exam - Constitutional Vitals: Temp Pulse Resp BP Pulse Ox 98.2 F 62 18 100/61 97 03/26/18 07:42 03/26/18 07:42 03/26/18 07:42 03/26/18 07:42 03/26/18 07:42 General appearance: cooperative, no acute distress, thin - Head Head exam: Present: atraumatic, normal inspection, normocephalic - Eye Eye exam: Present: EOMI, normal appearance, PERRL, sclera anicteric Pupils: Present: normal accommodation - ENT ENT exam: Present: mucous membranes moist - Neck Neck exam: Present: normal inspection - Respiratory Respiratory exam: Present: CTAB. Absent: rales, respiratory distress, rhonchi, wheezes - Cardiovascular Cardiovascular exam: Present: RRR, +S1, +S2 - GI/Abdominal GI/Abdominal exam: Present: normal bowel sounds, soft. Absent: distended, tenderness - Extremities Exam Extremities exam: Present: normal inspection. Absent: joint swelling, pedal edema, tenderness - Back Exam Back exam: Present: normal inspection. Absent: paraspinal tenderness, vertebral tenderness - Neurological Exam Neurological exam: Present: alert, oriented X3, no focal deficits - Psychiatric Psychiatric exam: Present: normal affect, normal mood - Skin Skin exam: Present: dry, intact, pallor, warm Infectious Disease CN: Results - Labs CBC & Chem 7: 03/26/18 05:44 03/26/18 05:44 Serology: Serology 03/26/18 Range/Units 05:44 HIV Ag/Ab Combo Qual Nonreactive (Nonreactive) Consult Discharge Plan - Plan Referrals: NONE,PCP [Primary Care Provider] - - Attending Attestation I examined this patient and my medical decision-making was reviewed with the Resident Physician. I agree with the documented findings, disposition and treatment plan as described except to the extent set forth below. This is an addendum to original report dictated by Eloisa Kellogg CNP. Please refer to Eloisa's note for full detail. Patient is a 32-year-old gentleman with history of IV drug use presented with weakness, nausea and vomiting for a couple days prior to admission. On arrival patient was noted to be in acute liver failure with elevated liver function tests and bilirubin of 7.9. Hepatitis A came back positive. We were asked to evaluate the patient and make further recommendations. Currently patient appears comfortable lying in bed. Mildly jaundice. Admits to being nauseated but denies any vomiting, abdominal pain, diarrhea or patient eager to go home. Assessment and plan: Acute hepatitis secondary to hepatitis A IV drug use history of Asymptomatic bacteriuria Recommendations: Patient with acute hepatitis A presented with similar presentation. I do expect his LFTs to eventually peaked and hopefully start tapering down. This might take up to 3 months to fully resolved. Usually it takes much faster. No further recommendations. Consider vaccinating any's 1 that was in very close contact. Check HIV and hepatitis B and hepatitis C profile Monitor closely No further recommendations this point We will sign off.
--- NOTE | 2018-03-26 11:49 | Internal Med Progress Note ---
Date of Encounter: 03/26/18 Time of Encounter: 11:42 - Assessment and plan (1) Hepatitis A Current Visit: Yes Status: Acute Assessment and plan: 03/25- Patient admitted for acute hepatitis A infection. Plan will be supportive care. -IVF Normal Saline 125ml/hr and Ondansetron 4mgIVP Q6HR for nausea/vomiting resuscitation -INR to evaluate liver function -HIV antibody screen due to high risk activity -Trend CBC/CMP -Follow Urine Drug Screen 03/26- Patient clinical disposition and laboratory values improved. HIV screen negative, UDS positive for opioids, urine culture pending. Continue current supportive care and monitor labs/culture. Qualifiers: Hepatic coma status: without hepatic coma Qualified Code(s): B15.9 - Hepatitis A without hepatic coma (2) Urinary tract infection Current Visit: Yes Status: Acute Assessment and plan: 03/25- Due to male gender and flank pain this is considered a complicated UTI -1gIV Ceftriaxone daily -IVF Normal Saline 125ml/hr and follow urine cultures for growth/ sensitivities -Follow clinical disposition for worsening symptoms 03/26- Patient denies any symptoms currently. Urine cultures pending, we will continue to follow. Qualifiers: Urinary tract infection type: site unspecified Hematuria presence: with hematuria Qualified Code(s): N39.0 - Urinary tract infection, site not specified; R31.9 - Hematuria, unspecified (3) Nausea and vomiting Current Visit: Yes Status: Acute Assessment and plan: 03/25- Nausea and vomiting due to Hep A infection, supportive care -IVF Normal Saline 125ml/hr and Ondansetron 4mgIV Q6HR -Normal diet ordered 03/26- Nausea and vomiting resolved, tolerating diet. Qualifiers: Vomiting type: unspecified Vomiting Intractability: non-intractable Qualified Code(s): R11.2 - Nausea with vomiting, unspecified (4) DVT prophylaxis Current Visit: Yes Status: Acute Assessment and plan: Ambulation TID - Time Spent With Patient Total time spent is greater than 50% in coordination of care (as documented) at patient's floor/unit and/or counseling patient: - Subjective Interval history: Mr. Cervantes has no complaints this morning, he states his nausea and vomiting have resolved. He has been eating without issue. - Constitutional Vitals: Temp Pulse Resp BP Pulse Ox 98.2 F 62 18 100/61 97 03/26/18 07:42 03/26/18 07:42 03/26/18 07:42 03/26/18 07:42 03/26/18 07:42 General appearance: Present: mild distress, A&O X 3, answers questions appropriately Exam: Patient in no acute distress Alert and oriented x 3 Heart in regular rate and rhythm, no murmur or gallop Lungs clear to auscultation bilaterally Abdomen soft and non tender, no hepatomegaly, no flank tenderness Skin warm and dry Internal Medicine: Result - Labs CBC & Chem 7: 03/26/18 05:44 03/26/18 05:44 Labs: Short CBC 03/26/18 Range/Units 05:44 WBC 3.2 L (4.3-11.1) K/mcL Hgb 14.7 D (12.9-16.9) g/dL Hct 41.0 (37.5-50.1) % Plt Count 127 L (140-400) K/mcL Neutrophils # 1.1 L (1.6-8.9) K/mcL BMP 03/26/18 05:44 Sodium 136 Potassium 3.6 Chloride 107 Carbon Dioxide 30 H BUN 13 Creatinine 0.89 Glucose 109 H Calcium 8.8 Liver Function 03/26/18 Range/Units 05:44 Total Bilirubin 6.2 H (0.3-1.0) mg/dL AST 1177 H (13-39) Units/L ALT > 500 H (7-52) Units/L Alkaline Phosphatase 182 H (34-104) Units/L Albumin 3.4 L (3.5-5.7) g/dL - ABG Interpretation ABG results: PT/INR, D-dimer PT 14.4 Seconds (9.4-12.1) H 03/25/18 16:50 Consult Discharge Plan - Plan Referrals: NONE,PCP [Primary Care Provider] -
[2018-03-26 12:49] VITALS: BP 111/75
--- NOTE | 2018-03-26 13:41 | Discharge Summary ---
<Raf Donovan - Last Filed: 03/26/18 13:38> - NOTES TO OUTPATIENT PROVIDER Notes to Outpatient Provider: Patient diagnosed and treated for Hep A, should get repeat CMP in one week. Date of Encounter: 03/26/18 Time of Encounter: 13:38 - Discharge Diagnosis (1) Hepatitis A Priority: Primary Status: Acute Assessment and Plan: Diagnosed with Hep A, treated with IVF and ondansetron. INR trended, IV screen negative, CBC/CMP trended. UDS positive for opiates. Qualifiers: Hepatic coma status: without hepatic coma Qualified Code(s): B15.9 - Hepatitis A without hepatic coma (2) Urinary tract infection Priority: Secondary Status: Acute Assessment and Plan: Patient presented for nausea vomiting, was found to have UTI. Treated with 1gIV Ceftriaxone daily, IVF normal saline. Urine cultures were pending at time of discharge AMA. Qualifiers: Urinary tract infection type: site unspecified Hematuria presence: with hematuria Qualified Code(s): N39.0 - Urinary tract infection, site not specified; R31.9 - Hematuria, unspecified (3) Nausea and vomiting Priority: Secondary Status: Acute Assessment and Plan: 03/25- Nausea and vomiting due to Hep A infection, supportive care -IVF Normal Saline 125ml/hr and Ondansetron 4mgIV Q6HR -Normal diet ordered 03/26- Nausea and vomiting resolved, tolerating diet. Patient presented with nausea and vomiting, which had resolved and he was tolerating diet at time of discharge AMA. Qualifiers: Vomiting type: unspecified Vomiting Intractability: non-intractable Qualified Code(s): R11.2 - Nausea with vomiting, unspecified (4) DVT prophylaxis Priority: Secondary Status: Resolved Assessment and Plan: Ambulation TID Hospital course: Mr. Cervantes is a 32 year old male with no significant past medical history who presented to the emergency department because of 5 days of flu like symptoms including nausea, vomiting, malaise, and anorexia. He states he visited a friend who was inpatient at [facility] on Friday, and then went back to a hotel where he started feeling subjectively febrile. On the next day he developed consistent nausea and vomiting with headache and anorexia, all which consistently worsened up to admission. During that time he also developed a reddish orange color to his urine and yellowing of the eyes. 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 He denies recent travel, has not seen a doctor since retirement, and is unaware of his vaccine history. In the ED gallbladder US showed wall thickening but otherwise normal. Abdominal/ pelvic CT showed splenomegaly but otherwise no acute process. Bilirubin and liver enzymes were significantly elevated. UA positive for RBCs, WBCs, protein, and nitrites. Hepatitis serology positive for Hepatitis A IgM antibody. He was admitted for Hep A and UTI. He was started on IVF normal saline, IV ceftriaxone, and ondansetron. HIV screen was run and found to be negative, UDS was positive for opiates, and urine culture was collected. The next day his vitals, labs, and clinical condition were greatly improved, he was tolerating a regular diet ad no longer had nausea and vomiting. The plan was to continue supportive care for one more day. In the afternoon I was contacted by the nurse that he had left AMA. I will order a repeat CMP for the patient in one week that he will hopefully comply with. Discharge discussed with: other (unable to discuss discharge as patient left AMA ) - Time Spent with Patient Total time spent providing and/or coordinating discharge services: - Discharge Medications Home Medications: No Known Home Drugs 03/25/18 [History] Allergies/Adverse Reactions: 3 Allergy/AdvReac Type Severity Reaction Status Date / Time No Known Allergies Allergy Verified 02/03/17 10:54 Date of admission: 03/25/18 17:55 Primary care physician: PCP NONE Discharging clinician: Raf Donovan Anticipated date of discharge: 03/26/18 - Constitutional Vitals: Temp Pulse Resp BP Pulse Ox 97.5 F L 74 19 111/75 99 03/26/18 12:48 03/26/18 12:48 03/26/18 12:48 03/26/18 12:48 03/26/18 12:48 General appearance: Present: mild distress, A&O X 3, answers questions appropriately Exam: Not able to exam patient before discharge AMA. - Patient Status Disposition: Left Against Medical Advice Condition: Good Functional capacity at discharge: independent ambulation Overall status at discharge: patient is progressing back to baseline - Discharge Instructions Follow Up With: NONE,PCP [Primary Care Provider] - - Diet and Activity Activity: resume usual activities as tolerated Diet: advance to your usual diet <AlethaagusOdin mcmillan Keanu - Last Filed: 03/26/18 14:30> Date of Encounter: 03/26/18 - Discharge Diagnosis (1) Hepatitis A Status: Acute Qualifiers: Hepatic coma status: without hepatic coma Qualified Code(s): B15.9 - Hepatitis A without hepatic coma (2) Nausea and vomiting Status: Acute Qualifiers: Vomiting type: unspecified Vomiting Intractability: non-intractable Qualified Code(s): R11.2 - Nausea with vomiting, unspecified (3) Urinary tract infection Status: Acute Qualifiers: Urinary tract infection type: site unspecified Hematuria presence: with hematuria Qualified Code(s): N39.0 - Urinary tract infection, site not specified; R31.9 - Hematuria, unspecified (4) DVT prophylaxis Status: Resolved Hospital course: Mr. Cervantes is a 32 year old male - Time Spent with Patient Total time spent providing and/or coordinating discharge services: Date of admission: 03/25/18 17:55 Primary care physician: PCP NONE - Constitutional Vitals: Temp Pulse Resp BP Pulse Ox 97.5 F L 74 19 111/75 99 03/26/18 12:48 03/26/18 12:48 03/26/18 12:48 03/26/18 12:48 03/26/18 12:48 - Attending Attestation Patient was seen and examined. I agree with the discharge summary as dictated above by the resident physician. Discharge plans and recommendations were made under my direct supervision.
== END 2018-03-26 13:39 | disposition left against medical advice (07) ==
LOC: EMEROO 13:22 → 2ANU 13:22
PROVIDERS: ADMIT Internal Medicine; ATTEND Internal Medicine